=== PATIENT | female | born 1985 | race Caucasian/White ===

== ENCOUNTER 2017-01-26 16:52 | Emergency (ER) | payer SELFPAY ==
--- NOTE | 2017-01-29 07:00 | ED ---
olaf Davidson Timothy, scribed for Avi Du MD on 01/26/17 at 1843 . Substance Abuse/Use - HPI Summary HPI Summary: Annemarie Davis is a 31 yo female presenting to [facility] with substance abuse. Pt states she was drinking EtOH and was found on the floor somewhere, but actually she was [place] outside [place] near a busy [place] by police, who called an ambulance for her at approximately 1300 today. She states she took her clonazepam as prescribed in the morning. She is not in any current pain, and denies ARNOLD. She denies any SI or thoughts of self-harm. She has contacted her parents, whom she lives with. Her MHx includes depression, anxiety. - History Of Current Complaint Chief Complaint: EDSubstanceAbuse Stated Complaint: ETOH Time Seen by Provider: 01/26/17 18:31 Hx Obtained From: Patient, EMS Onset/Duration of Drug/ETOH Abuse: Hours Ingestion History: Type/Name Of Drug - EtOH Overdose Characteristics: Oral Severity Initially: Moderate Severity Currently: Moderate Character: Stuporous - Allergies/Home Medications Allergies/Adverse Reactions: Allergies Allergy/AdvReac Type Severity Reaction Status Date / Time No Known Allergies Allergy Verified 01/26/17 18:13 PMH/Surg Hx/FS Hx/Imm Hx Psychiatric History: Reports: Hx Anxiety, Hx Depression Infectious Disease History: No Infectious Disease History: Denies: Traveled Outside the [place] in Last 30 Days - Family History Known Family History: Positive: Other - EtOH abuse - Social History Alcohol Use: Occasionally Substance Use Type: Reports: None Smoking Status (MU): Never Smoked Tobacco Review of Systems Constitutional: Other - Pt states she is intoxicated from EtOH Negative: Fever, Chills Eyes: Negative Negative: Erythema ENT: Negative Negative: Sore Throat Cardiovascular: Negative Negative: Palpitations, Chest Pain Respiratory: Negative Negative: Shortness Of Breath, Cough Gastrointestinal: Negative Negative: Abdominal Pain, Vomiting, Nausea Genitourinary: Negative Negative: dysuria, hematuria Musculoskeletal: Negative Negative: Edema - legs Skin: Negative Negative: Rash Neurological: Negative - no dizziness Psychological: Normal All Other Systems Reviewed And Are Negative: Yes Physical Exam - Summary Physical Exam Summary: Constitutional: Well-developed, Well-nourished, Alert. (-) Distressed Skin: Warm, Dry HENT: Normocephalic; Atraumatic Eyes: Conjunctiva normal Neck: Musculoskeletal ROM normal neck. (-) JVD, (-) Stridor, (-) Tracheal deviation Cardio: Rhythm regular, rate normal, Heart sounds normal; Intact distal pulses; The pedal pulses are 2+ and symmetric. Radial pulses are 2+ and symmetric. (-) Murmur Pulmonary/Chest wall: Effort normal. (-) Respiratory distress, (-) Wheezes, (-) Rales Abd: Soft, (-) Tenderness, (-) Distension, (-) Guarding, (-) Rebound Musculoskeletal: (-) Edema Lymph: (-) Cervical adenopathy Neuro: Alert, Oriented x3, steady gait Psych: Mood and affect Normal Triage Information Reviewed: Yes Vital Signs On Initial Exam: Initial Vitals Temp Pulse Resp BP Pulse Ox 98.7 F 90 18 133/72 97 01/26/17 17:45 01/26/17 17:45 01/26/17 17:45 01/26/17 17:45 01/26/17 17:45 Vital Signs Reviewed: Yes - [place] Coma Scale Coma Scale Total: 15 Diagnostics - Vital Signs Vital Signs Temp Pulse Resp BP Pulse Ox 01/26/17 17:45 98.7 F 90 18 133/72 97 - Laboratory Lab Statement: Any lab studies that have been ordered have been reviewed, and results considered in the medical decision making process. Course/Dx - Course Assessment/Plan: Annemarie Davis is a 31 yo female presenting to [facility] with EtOH intoxication, BIBA called by police. After clinical examination, she will be discharged home to her parents with EtOH intoxication. - Diagnoses Provider Diagnoses: Alcohol intoxication - Physician Notifications Discussed Care Of Patient With: 1851 - Pt's mother - asked Pt's mother if she was able to come to [facility] to pick her daughter up, to which she responded yes, and that she would be there imminently. Discharge - Discharge Plan Condition: Stable Disposition: HOME Patient Education Materials: Alcohol Intoxication (ED), Abuse of Alcohol (ED) Referrals: Alejandrina Crupm MD [Primary Care Provider] - 2 Days Additional Instructions: Please follow up with your primary care physician regarding your visit to the emergency department today. Return to the emergency department with any new or recurring symptoms. The documentation as recorded by the olaf skelton Timothy accurately reflects the service I personally performed and the decisions made by me, Avi Du MD.
== END 2017-01-26 19:09 | disposition home or self-care (01) ==
LOC: ED 16:52
DX: F10.129 Alcohol abuse with intoxication, unspecified (principal); F19.10 Other psychoactive substance abuse, uncomplicated
CPT/HCPCS: 99282

== ENCOUNTER 2017-03-18 20:25 | Emergency (ER) | payer OTHER ==
--- NOTE | 2017-03-18 21:11 | UC ---
Laceration HPI - HPI Summary HPI Summary: Hit in forehead with softball this evening. Denies ARNOLD, nausea, vomiting, LOC, confusion, amnesia, problems with vision, problems with balance, neck pain, bloody nose, or dental pain. Has bleeding laceration between eyebrows. - History Of Current Complaint Chief Complaint: UCTrauma Stated Complaint: HEAD INJURY Time Seen by Provider: 03/18/17 20:55 Laceration Location: Face Mechanism Of Injury: Blunt Trauma Onset/Duration: Sudden Onset - Allergies/Home Medications Allergies/Adverse Reactions: Allergies Allergy/AdvReac Type Severity Reaction Status Date / Time No Known Allergies Allergy Verified 03/18/17 20:43 Home Medications: Home Medications ARIPiprazole TAB* [Abilify TAB*] 5 mg PO DAILY 03/18/17 [History Confirmed 02/27] Escitalopram Oxalate [Lexapro 10 mg] 10 mg PO DAILY 03/18/17 [History Confirmed 03/18/17] clonazePAM TAB(*) [KlonoPIN TAB(*)] 0.5 mg PO TID PRN 03/18/17 [History Confirmed 03/18/17] PMH/Surg Hx/FS Hx/Imm Hx Previously Healthy: Yes - Surgical History Surgical History: None - Family History Known Family History: Positive: Other - EtOH abuse - Social History Occupation: Employed Full-time Alcohol Use: Weekly Substance Use Type: None Smoking Status (MU): Never Smoked Tobacco Review of Systems Constitutional: Negative Skin: Other - forehead lac Eyes: Negative ENT: Negative Respiratory: Negative Cardiovascular: Negative Gastrointestinal: Negative Genitourinary: Negative Motor: Negative Neurovascular: Negative Musculoskeletal: Negative Neurological: Negative Psychological: Negative All Other Systems Reviewed And Are Negative: Yes Physical Exam Triage Information Reviewed: Yes Appearance: Well-Appearing, No Pain Distress, Well-Nourished Vital Signs: Initial Vital Signs Temp 98.5 F 03/18/17 20:38 Pulse 104 03/18/17 20:38 Resp 20 03/18/17 20:38 BP 154/112 03/18/17 20:38 Pulse Ox 100 03/18/17 20:38 Vital Signs Reviewed: Yes Eye Exam: Normal, Other - PERRL, EOM-I Eyes: Positive: Conjunctiva Clear ENT: Positive: Normal ENT inspection, Hearing grossly normal, Pharynx normal, TMs normal, Other: - no epistaxis, pharyngeal blood, sinus tenderness, or tenderness on bridge of the nose Dental Exam: Normal Dental: Negative: Percussion Tenderness @, Gross Decay/Caries @ Neck exam: Normal, Other - no bony tenderness Neck: Positive: Supple, Nontender Respiratory Exam: Normal Respiratory: Positive: Chest non-tender, Lungs clear, Normal breath sounds, No respiratory distress, No accessory muscle use Cardiovascular Exam: Normal Cardiovascular: Positive: RRR, No Murmur Musculoskeletal Exam: Normal Neurological Exam: Normal Psychological Exam: Normal Skin Exam: Normal Laceration Repair - Laceration Repair 1 Description: Linear Laceration Size After Repair: Length (cm) - 2, Width (mm) - 0, Depth (mm) - 0 Modified For Repair: No Cleansing Completed Via Routine Prep: Yes Irrigation With Pressure Irrigation Device: Yes Closure Material: Skin Adhesive, SteriStrips Closure Method: Single Layer Laceration Course/Dx - Differential Dx - Laceration/Wound Provider Diagnoses: forehead contusion. forehead laceration. elevated blood pressure due to discomfort Discharge - Discharge Plan Condition: Stable Disposition: HOME Patient Education Materials: Facial Laceration (ED), Facial Contusion (ED) Referrals: Alejandrina Crump MD [Primary Care Provider] - Additional Instructions: Try to keep the steristrips dry and intact for the first 3 days. Careful showering is fine, but you should not swim until they fall off on their own (or a week, whichever comes first). Come back here if you have redness, swelling, or increasing pain. You should expect some swelling and bruising on your face tomorrow; it is likely you will have bruising under both eyes.
[2017-03-18] MEDS ORDERED: Ibuprofen TAB* 600 MG PO ONE (21:43)
== END 2017-03-18 21:58 | disposition home or self-care (01) ==
LOC: UCEAST 20:25
DX: S01.81XA Laceration without foreign body of other part of head, initial encounter (principal); S00.83XA Contusion of other part of head, initial encounter; R03.0 Elevated blood-pressure reading, without diagnosis of hypertension; W21.07XA Struck by softball, initial encounter; Y93.9 Activity, unspecified; Y92.9 Unspecified place or not applicable
CPT/HCPCS: 12011; 99213; A9270-GY; G0463

== ENCOUNTER 2017-06-13 15:35 | Emergency (ER) | payer MEDICAID, OTHER ==
[2017-06-13 15:50] VITALS: BP 145/88
--- NOTE | 2017-06-13 16:35 | UC ---
Hip/Pelvis Pain - HPI Summary HPI Summary: 32 YEAR OLD FEMALE PRESENTS WITH LARGE PERIANAL ABSCESS. - History Of Current Complaint Chief Complaint: UCGeneralIllness Stated Complaint: PAIN NEAR BUTTOCKS Time Seen by Provider: 06/13/17 16:35 Hx Obtained From: Patient Hx Last Menstrual Period: 06/07/17 Onset/Duration: Sudden Onset Timing: Constant Severity Initially: Moderate Severity Currently: Moderate Pain Scale Used: 0-10 Numeric - 8 Character Of Pain: Sharp, Throbbing - Allergies/Home Medications Allergies/Adverse Reactions: Allergies Allergy/AdvReac Type Severity Reaction Status Date / Time No Known Allergies Allergy Verified 06/13/17 15:51 PMH/Surg Hx/FS Hx/Imm Hx Previously Healthy: Yes - Surgical History Surgical History: None - Family History Known Family History: Positive: Other - EtOH abuse - Social History Alcohol Use: Occasionally Substance Use Type: Prescribed Smoking Status (MU): Never Smoked Tobacco Review of Systems Constitutional: Negative Skin: Other - LARGE PERIANAL ABSCESS Eyes: Negative ENT: Negative Respiratory: Negative Cardiovascular: Negative Gastrointestinal: Negative Genitourinary: Negative Motor: Negative Neurovascular: Negative Musculoskeletal: Negative Neurological: Negative Psychological: Negative All Other Systems Reviewed And Are Negative: Yes Physical Exam Triage Information Reviewed: Yes Vital Signs: Initial Vital Signs Temp 37.4 C 06/13/17 15:46 Pulse 90 06/13/17 15:46 Resp 18 06/13/17 15:46 BP 145/88 06/13/17 15:46 Pulse Ox 99 06/13/17 15:46 Eye Exam: Normal ENT Exam: Normal Dental Exam: Normal Neck exam: Normal Neck: Positive: 1 Respiratory Exam: Normal Cardiovascular Exam: Normal Abdomen Description: Positive: Other: - LARGE PERIANAL ABSCESS Musculoskeletal Exam: Normal Neurological Exam: Normal Psychological Exam: Normal Skin Exam: Normal Hip Injury Course/Dx - Differential Dx/Diagnosis Provider Diagnoses: PERIANAL ABSCESS Discharge - Discharge Plan Condition: Stable Disposition: HOME Patient Education Materials: Abscess (ED) Referrals: No Primary Care Phys,NOPCP [Primary Care Provider] - Additional Instructions: PATIENT SUGGESTED TO GO TO THE ER FOR PERIANAL ABSCESS DRAINAGE.
== END 2017-06-13 16:52 | disposition home or self-care (01) ==
LOC: UCEAST 15:35
DX: K61.0 Anal abscess (principal)
CPT/HCPCS: 99212; G0463

== ENCOUNTER → 2017-06-13 17:37 | Emergency (ER) | payer MEDICAID ==
[~2017-06-13 17:37] MED LIST: Ciprofloxacin 400MG IVPREMIX(* 400 MG/200 ML BAG IVPB ONE; Ibuprofen TAB* 800 MG PO ONE; Lidocaine 2% EPI 1:200000 MPF* 20 ML VIAL INJ ONE; Lidocaine 2% EPI 1:200000 MPF* 20 ML VIAL ONE; Morphine INJ* 4 MG/ML 1 ML CARPUJECT IV ONE; NS 0.9% 1000 ML* 1,000 ML IV ONE; Ondansetron INJ* 2 MG/ML VIAL IV ONE; Vancomycin(*) 1,000 MG in NS 0.9% 250 ML* 250 ML IVPB ONE; metroNIDAZOLE IV 500 MG/100ML* 500 MG/100 ML BAG IVPB ONE
--- NOTE | 2017-06-13 19:53 | ED ---
GI/ HPI - HPI Summary HPI Summary: Pt here w/ perirectal abscess. Started 6 days ago - was small raised sore area then but not bad. In past couple of days, has gotten much worse. Difficulty sitting and walking - painful to move bowels when moving stool past abscess. No h/o trauma, waxing, shaving here nor prolonged sitting. She's never had this issue before - unsure of how this started. She does have red dry patches of flaking skin over her body - believes these are eczema - could be potential source? Has had some chills but also admits she's had a URI recently. Denies fever, N/V/D, ab pain, chest pain, SOB, dysuria, abnormal vaginal d/c. Has had a loose stool w/ mucous since this started - no known h/o IBD/IBS in personal or family hx. NOTE: Sexually active - on OBC - has not missed course of meds nor withdraw bleeding - History of Current Complaint Chief Complaint: EDRashSkinAbscess Time Seen by Provider: 06/13/17 19:10 Stated Complaint: ABSCESS-SENT FROM [facility] Hx Obtained From: Patient Hx Last Menstrual Period: 06/07/17 Pain Intensity: 8 - Allergy/Home Medications Allergies/Adverse Reactions: Allergies Allergy/AdvReac Type Severity Reaction Status Date / Time No Known Allergies Allergy Verified 06/13/17 15:51 PMH/Surg Hx/FS Hx/Imm Hx Previously Healthy: Yes Endocrine/Hematology History: Denies: Hx Anticoagulant Therapy, Autoimmune Disease Psychiatric History: Reports: Hx Anxiety, Hx Depression - klonopin PRN, lexparo and abilify - Immunization History Immunizations Up to Date: Yes Infectious Disease History: No Infectious Disease History: Denies: Hx of Known/Suspected MRSA, Traveled Outside the [place] in Last 30 Days - Family History Known Family History: Positive: Other - EtOH abuse; mom eczema - Social History Occupation: Unemployed Lives: With Family Alcohol Use: Weekly Alcohol Amount: 2x/week Hx Substance Use: No Substance Use Type: Reports: None Hx Tobacco Use: No Smoking Status (MU): Never Smoked Tobacco Review of Systems Positive: Chills. Negative: Fever, Fatigue Cardiovascular: Negative Respiratory: Negative Positive: Other - see HPI Genitourinary: Negative Skin: Other - see HPI Neurological: Negative Psychological: Normal All Other Systems Reviewed And Are Negative: Yes Physical Exam Triage Information Reviewed: Yes Vital Signs On Initial Exam: Initial Vitals Temp Pulse Resp BP Pulse Ox 99.2 F 91 16 134/74 100 06/13/17 17:39 06/13/17 17:39 06/13/17 17:39 06/13/17 17:39 06/13/17 17:39 Vital Signs Reviewed: Yes Appearance: Positive: Well-Appearing, Well-Nourished, Pain Distress - 04/22 Skin: Positive: Warm, Dry - raised pink/erythematous area of flesh abutting rectum and spreading superiorly into gluteal crevice - boggy, TTP - no pore observed nor track; Left inner gluteal erythematous and feverish to touch along crevice aspect - also TTP Head/Face: Positive: Normal Head/Face Inspection Eyes: Positive: EOMI ENT: Positive: Hearing grossly normal, Pharynx normal - mucosa moist Respiratory/Lung Sounds: Positive: Breath Sounds Present Cardiovascular: Positive: Normal, RRR Abdomen Description: Positive: Nontender, No Organomegaly, Soft Bowel Sounds: Positive: Present Pelvic Exam: Positive: other - deferred Musculoskeletal: Positive: Normal, Strength/ROM Intact Neurological: Positive: Normal, Sensory/Motor Intact, Alert, Oriented to Person Place, Time, CN Intact II-III Psychiatric: Positive: Normal Procedures - Incision and Drainage Site: PERFORMED BY DR. MARAVILLA - SEE NOTE Diagnostics - Vital Signs Vital Signs Temp Pulse Resp BP Pulse Ox 06/13/17 17:39 99.2 F 91 16 134/74 100 - Laboratory Result Diagrams: 06/13/17 20:30 06/13/17 20:30 Lab Statement: Any lab studies that have been ordered have been reviewed, and results considered in the medical decision making process. Re-Evaluation - Re-Evaluation First Eval Change: Improved GIGU Course/Dx - Course Course Of Treatment: Pt presents w/ perirectal abscess x 6 days. Worse past few days. Denies fever, chills, N/V. No known personal or family h/o IBS/IBD. Dr. Maravilla performed I&D and after drainage, recommends cipro and flagyl for anbx. D/ t elevated WBC's w/ left shift, administered 1st course here via IV. Pt reports pain relief s/p I&D. Will d/c w/ PO anbx and f/u w/ surgery for packing change. Reviewed danger s/sx of when to return to ED. UPDATE: MRSA AND STAPH NEG PER PRELIM CX RESULTS - Diagnoses Provider Diagnoses: Perirectal abscess Discharge - Discharge Plan Condition: Stable Disposition: HOME Prescriptions: Ciprofloxacin HCl [Cipro 500 MG TAB] 500 mg PO BID #19 tab HYDROcodone/ACETAMIN 5-325 MG* [Sipsey 5-325 TAB*] 1 tab PO Q6H PRN #20 tab MDD 4 PRN Reason: Pain Ibuprofen TAB* [Motrin TAB* 800 MG] 800 mg PO Q8HR PRN #20 tab PRN Reason: Pain Metronidazole [Flagyl 500 MG TAB] 500 mg PO TID #29 tab Patient Education Materials: Anorectal Abscess and Anal Fistula (ED), Incision and Drainage (ED), Wound Healing and Your Diet (ED) Referrals: Monico Maravilla MD [Medical Doctor] - Additional Instructions: Your wound was opened, drained and packed today by Dr. Maravilla, your general surgeon. This wound will now have the ability to drain and rid your body of infection. You also given a course of IV antibiotics. It is important that you continue to complete the antibiotics that were written for you to take at home. Keep wound covered until seen by general surgery in follow -up. Call tomorrow to schedule dressing change. You may take ibuprofen and norco for pain. *If you develop fever, chills, vomiting, incontinence of stools, return to ED
[2017-06-13 20:55] LABS: Hematocrit 30 % (35-47); Hemoglobin 9.9 g/dl (12.0-16.0); Mean Corpuscular HGB Conc 34 g/dl (31-36); Mean Corpuscular Hemoglobin 35 pg (27-31); Mean Corpuscular Volume 104 fL (80-97); Mean Platelet Volume 7 um3 (7.4-10.4); Red Blood Count 2.85 10^6/ul (4.0-5.4); Red Cell Distribution Width 19 % (10.5-15); White Blood Count 28.9 10^3/ul (3.5-10.8)
[2017-06-13 20:57] LABS: Add Diff/Slide Review? Slide Review Added; Comments Flag Yes
[2017-06-13 21:06] LABS: Albumin 3.3 g/dL (3.2-5.2); BUN/Creatinine Ratio 9.1 (8-20); C Reactive Protein 170.76 mg/L (< 5.00); Calcium 8.8 mg/dL (8.6-10.3); EGFR African American 162.7 (>60); EGFR Non-African American 126.5 (>60); Globulin 3.8 g/dL (2-4); Potassium 3.6 mmol/L (3.5-5.0); Total Bilirubin 0.3 mg/dL (0.2-1.0); Total Protein 7.1 g/dL (6.4-8.9)
[2017-06-14 00:56] VITALS: BP 122/66
--- NOTE | 2017-06-15 04:26 | PRO ---
CONSULTATION AND PROCEDURE NOTE: DATE OF CONSULT/PROCEDURE DONE IN THE EMERGENCY ROOM: 06/14/17 HISTORY OF PRESENT ILLNESS: I was called by the emergency room to evaluate Ms. Davis, a 32-year-old female, who presented with perianal pain for close to 5 days now. The patient's workup in the emergency room was suggestive of a perianal abscess, perirectal abscess and surgery was consulted. The patient stated that approximately 5 days, she felt twinge in the perirectal space. By 3 days ago, she had swelling and tenderness there. She was able to take bowel movements. The area was mildly tender. The patient denied any drainage from the site and she had no previous similar symptoms. She denied any fevers or chills. No nausea or vomiting. PAST MEDICAL HISTORY: Reviewed and consists of anxiety. MEDICATIONS: Medication list reviewed. ALLERGIES: She has no known drug allergies. FAMILY HISTORY: Noncontributory. SOCIAL HISTORY: She is a nonsmoker. Does not work in healthcare. REVIEW OF SYSTEMS: No fevers. No chills. No shortness of breath. No chest pain. No headaches. No abdominal complaints. Passing flatus. Bowel movements are regular with only minimal tenderness upon bowel movement. She has good exercise tolerance. No bleeding or clotting disorders. PHYSICAL EXAM: Well appearing, in mild distress, lying on stretcher on her left side. Alert and oriented x3. She answers questions appropriately. Head, Eyes, Ears, Nose, and Throat: Normocephalic, atraumatic. Sclerae anicteric. Mucous membranes are moist. Abdomen: Soft, distended, nontender. On rectal exam, I did not do a digital rectal exam given the patient's significant tenderness and redness and fluctuance at midline and on the left buttocks at the perianal space and perirectal space. IMPRESSION: Perirectal abscess. RECOMMENDATIONS: Incision and drainage, antibiotics and followup. DESCRIPTION OF PROCEDURE: After discussing the risks, benefits, and alternatives, the patient's consent was sought. We spoke about the possible complications, which include, but are not limited to, bleeding, infection, need for additional procedures, and possible development of a fistula. The patient agreed and signed consent. The area was prepped sterilely. Time-out was performed. Injection of lidocaine along the fluctuant area was performed and a cruciate incision was made overlying the most fluctuant portion closest to the anus. Copious foul- smelling drainage was removed. Cultures were taken. Finger dissection was utilized to free up any loculations and the wound was packed with 1/2-inch Iodoform packing. The patient tolerated the procedure well. Gauze was placed and she was planned for discharge for a followup in my office. She will be sent home with ciprofloxacin and Flagyl. [id number]/[facility] #: [id number] [place]
--- NOTE | 2017-06-15 09:54 | PN ---
Progress Note - Progress Note Date of Service: 06/13/17 Note: Patient wound culture results negative for staph and MRSA. positive for group strep A. placed on ciprofloxacin at d/c which should have appropriate coverage. will wait for final susceptibility results.
== END | disposition home or self-care (01) ==
LOC: ED 17:37
DX: K61.1 Rectal abscess (principal); F32.9 Major depressive disorder, single episode, unspecified; F41.9 Anxiety disorder, unspecified; B95.5 Unspecified streptococcus as the cause of diseases classified elsewhere
CPT/HCPCS: 36415; 80053; 83605; 85025; 86140; 87070; 87076; 87077; 87186; 87205; 87640; 87641; 96360; 96374; 96375; 99283; A9270-GY; J0744; J2270; J2405

== ENCOUNTER 2019-03-10 11:14 | Emergency (ER) | payer MEDICAID, OTHER ==
[2019-03-10 11:38] VITALS: BP 136/81
[2019-03-10] MEDS ORDERED: DOXYcycline CAP(*) 100 MG PO ONE (11:52)
[2019-03-10] MEDS ORDERED: Tetan/Diph/Pertus SYR(Tdap)* 0.5 ML SYR(BOOSTRIX) use SYR IM ONE (11:52)
--- NOTE | 2019-03-10 12:03 | UC ---
Skin Complaint HPI - HPI Summary HPI Summary: Patient presents to urgent care with a tick embedded in her left lateral proximal calf. Patient states she was hiking yesterday. Patient states she does not think it was at this morning but noticed about 30 mins prior to arrival. Patient denies any pain. No bleeding. No other wounds. Patient is not immunocompromised. No analgesia taken. Patient does not know when her last tetanus shot was. Patient's medications reviewed this visit. Patient states she is not . - History of Current Complaint Chief Complaint: UCSkin Time Seen by Provider: 03/10/19 11:36 Stated Complaint: TICK Hx Obtained From: Patient Hx Last Menstrual Period: 02/12/19 ?: No Onset/Duration: Sudden Onset Pain Intensity: 0 - Allergy/Home Medications Allergies/Adverse Reactions: Allergies Allergy/AdvReac Type Severity Reaction Status Date / Time No Known Allergies Allergy Verified 03/10/19 11:39 Home Medications: Home Medications Dextroamphetamine/Amphetamine [Dextroamp-Amphetamine 5 mg Tab] 1 tab PO DAILY [History Confirmed 03/10/19] Prazosin HCl 1 tab PO DAILY 03/10/19 [History Confirmed 03/10/19] PMH/Surg Hx/FS Hx/Imm Hx Previously Healthy: Yes Other History Of: Negative For: Anticoagulant Therapy - Surgical History Surgical History: None - Family History Known Family History: Positive: Other - EtOH abuse; mom eczema, Non-Contributory - Social History Occupation: Employed Full-time Lives: With Family Alcohol Use: Weekly Alcohol Amount: 2x/week Substance Use Type: None Smoking Status (MU): Never Smoked Tobacco Review of Systems All Other Systems Reviewed And Are Negative: Yes Skin: Positive: Other - tick left LE Physical Exam - Summary Physical Exam Summary: Vital Signs Reviewed: Yes A+Ox3, no distress Eyes: Conjunctiva Clear ENT: Hearing grossly normal neck: supple Respiratory: Positive: No respiratory distress, No accessory muscle use Cardiovascular: skin color reflect adequate perfusion Musculoskeletal Exam: LAGOS x 4 without difficulty Neurological: Positive: Alert, ambulatory without difficulty Psychological: Positive: Normal Response To Family Skin: Positive: left proximal lateral calf pt with a living, non engorged tick easily removed intact with tick twister wound cleansed with alcohol Triage Information Reviewed: Yes Vital Signs: Initial Vital Signs Temp 98.7 F 03/10/19 11:36 Pulse 66 03/10/19 11:36 Resp 17 03/10/19 11:36 BP 136/81 03/10/19 11:36 Pulse Ox 100 03/10/19 11:36 Course/Dx - Course Course Of Treatment: Patient presents with embedded living, non engorged tick to her left lower extremity. Easily removed intact. reviewed with pt CDC guidelines- gave tick twister from home use. After discussion of guidelines - pt requested prophylaxis Additionally, pt does not know when last tetanus was booster - pt spends time hiking, in [place]- pt with leg wound -will give booster now - Diagnoses Provider Diagnosis: Tick bite, Need for tetanus booster Discharge - Sign-Out/Discharge Documenting (check all that apply): Patient Departure All imaging exams completed and their final reports reviewed: No Studies - Discharge Plan Condition: Stable Disposition: HOME Patient Education Materials: Diphtheria/Acellular Pertussis/Tetanus Booster Vaccine (By injection), Tick Bite (ED) Referrals: Charlette Muniz MD [Primary Care Provider] - Additional Instructions: Keep area clean and dry. you may develop some reddness at the site of the tick - this is normal and not concerning Check yourself daily for ticks after you have been working in the [place] Contact your doctor or return with questions or concerns Approach to prophylaxis : According to the Infectious Diseases Society of [place] (IDSA) guidelines that recommend antibiotic prophylaxis only in patients who meet all of the following criteria: 1. Attached tick identified as an adult or nymphal I. scapularis tick (deer tick). 2. Tick is estimated to have been attached for 36 hours (by degree of engorgement or time of exposure). 3. Prophylaxis is begun within 72 hours of tick removal. Local rate of infection of ticks with B. burgdorferi is 20 percent if attached for over 48 hours (these rates of infection have been shown to occur in parts of [place], parts of the [facility], and parts of [place] and [place]). If you experience a tick and time of attachment is believed to be less than 36 hours, you may remove the tick with head intact and no need for prophylaxis. If over 36 hours, please come into UC. Prophylactic doxycycline is not recommended for ticks attached less than 36 hours. You received a tetanus booster today. You may have some soreness at the site of injection tomorrow- this is normal. Okay to alternate ibuprofen (Advil Motrin) and tylenol every 3 hours for pain contact your doctor or return with questions or concerns - Billing Disposition and Condition Condition: STABLE Disposition: Home
== END 2019-03-10 12:04 | disposition home or self-care (01) ==
LOC: UCEAST 11:14
DX: T63.481A Toxic effect of venom of other arthropod, accidental (unintentional), initial encounter (principal); Y92.838 Other recreation area as the place of occurrence of the external cause; Z23 Encounter for immunization
CPT/HCPCS: 90471; 90715; 99212; A9270-GY; G0463